=== PATIENT | female | born 1930 | race Two or more races ===

== ENCOUNTER 2020-10-19 15:10 | Inpatient (IN) | payer OTHER ==
[~2020-10-19] VITALS: Ht 165.1 cm; Wt 49.9 kg
[2020-10-19] MEDS ORDERED: TOPROL XL25 M1 (15:20)
== END 2020-10-28 07:16 | disposition home or self-care (01) | DRG 871 ==
LOC: ER 15:10 → MEDJ 10-20 16:10 → MEDI 10-26 17:23 → MEDJ 10-27 07:56
PROVIDERS: ADMIT Internal Medicine; ATTEND Internal Medicine
PROC: BW28ZZZ Computerized Tomography (CT Scan) of Head (ICD-10-PCS; principal; 2020-10-20)
PROC: 4A12X4Z Monitoring of Cardiac Electrical Activity, External Approach (ICD-10-PCS; 2020-10-20)
PROC: B24BZZZ Ultrasonography of Heart with Aorta (ICD-10-PCS; 2020-10-21)
DX: A41.9 Sepsis, unspecified organism (principal); I63.89 Other cerebral infarction; N39.0 Urinary tract infection, site not specified; G81.91 Hemiplegia, unspecified affecting right dominant side; I48.20 Chronic atrial fibrillation, unspecified; Z20.822 Contact with and (suspected) exposure to COVID-19; Z79.01 Long term (current) use of anticoagulants; B96.1 Klebsiella pneumoniae [K. pneumoniae] as the cause of diseases classified elsewhere; Z74.01 Bed confinement status; R33.8 Other retention of urine

== ENCOUNTER 2021-09-07 09:30 | Inpatient (IN) | payer OTHER ==
[~2021-09-07] VITALS: Ht 152.4 cm; Wt 43.1 kg
[~2021-09-07 09:30] MED LIST: TOPROL XL25 M1
[2021-09-07] MEDS ORDERED: ADULT LOW DOSE81 M1 PO (09:43)
[2021-09-07] MEDS ORDERED: TOPROL XL100 M1 PO (09:43)
[2021-09-07] MEDS ORDERED: ELIQUIS2.5 MG PO (09:44)
[2021-09-07] MEDS ORDERED: CLONAZEPAM1 MG PO (09:44)
== END 2021-09-19 18:55 | DRG 871 ==
LOC: ER 09:30 → MEDJ 16:23 → SURH 16:23 → MEDJ 17:29 → SURH 18:04
PROVIDERS: ADMIT Internal Medicine; ATTEND Internal Medicine
PROC: BW28ZZZ Computerized Tomography (CT Scan) of Head (ICD-10-PCS; 2021-09-07)
PROC: B24BZZZ Ultrasonography of Heart with Aorta (ICD-10-PCS; principal; 2021-09-08)
PROC: 02HV33Z Insertion of Infusion Device into Superior Vena Cava, Percutaneous Approach (ICD-10-PCS; 2021-09-11)
PROC: 4A12X4Z Monitoring of Cardiac Electrical Activity, External Approach (ICD-10-PCS; 2021-09-19)
DX: A41.9 Sepsis, unspecified organism (principal); R65.21 Severe sepsis with septic shock; I21.A1 Myocardial infarction type 2; N39.0 Urinary tract infection, site not specified; I48.20 Chronic atrial fibrillation, unspecified; Z16.12 Extended spectrum beta lactamase (ESBL) resistance; I11.9 Hypertensive heart disease without heart failure; B96.29 Other Escherichia coli [E. coli] as the cause of diseases classified elsewhere; E86.0 Dehydration; E87.8 Other disorders of electrolyte and fluid balance, not elsewhere classified; Z74.01 Bed confinement status; R79.89 Other specified abnormal findings of blood chemistry; Z20.822 Contact with and (suspected) exposure to COVID-19